=== PATIENT | male | born 1965 | race Caucasian/White ===

== ENCOUNTER → 2022-02-05 13:59 | Outpatient (BNVA) | payer SELFPAY | PROVIDERS: Visit Provider Physician Assistant Medical | DX: Z02.79 Encounter for issue of other medical certificate (principal) ==

== ENCOUNTER 2023-11-13 13:46 | Outpatient (REF) | payer OTHER, SELFPAY | END 2023-11-13 13:47 | disposition home or self-care (01) | LOC: HO.SH 13:46 | PROVIDERS: Visit Provider Internal Medicine | DX: Z01.118 Encounter for examination of ears and hearing with other abnormal findings (principal); H90.3 Sensorineural hearing loss, bilateral | CPT/HCPCS: 92557 ==

== ENCOUNTER 2023-12-16 15:49 | Outpatient (REF) | payer SELFPAY ==
--- NOTE | 2023-12-17 08:45 | MHC.AU.HA1 ---
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 Not interested in a CI at this time. He is only interested in purchasing a hearing aid for his right ear as he never liked using one in his left ear. Recommended changing to standard BTE for slightly more power. However, Reginald reported that the larger hearing aid case behind his ear would not be suitable for his line of work as equipment often grazes his head/ears. Also discussed more durability with BTE; however, Reginald opted to continue with a RITE style hearing aid. Discussed Oticon Intent differences including push button (no VC switch) and rechargeability or changing to Phonak. Reginald preferred to continue with Oticon and was agreeable to both differences. Impression taken, AD without incident. Sent to [employer]. Hearing Aid Prescription: Based on the individual?s shared listening needs, communication environments, dexterity, desire for connectivity, and personal preferences, the following prescription for amplification has been made: Right ear: Make, Model, Color: Oticon Intent 4 miniRITE-R Color: Silver Battery Size: Rechargeable Agent Contract Clerk/Slim Tube: Speaker Wire Length 3 Type of Earmold/Dome/CShell/SlimTip: Power Mold Accessories/Assistive Technology: Four Corner Stayer Machine Operator Plan of Care: Patient wishes to purchase hearing aids as prescribed Action Taken/Action Needed: Hearing Instrument Fitting to be scheduled when materials arrive Primary Diagnosis: H90.3 Bilateral Sensorineural Hearing Loss Signature: Provider: Porter Pond, [facility]
== END 2023-12-16 15:50 | disposition home or self-care (01) ==
LOC: HO.HAP 15:49
PROVIDERS: Visit Provider Internal Medicine
DX: Z46.1 Encounter for fitting and adjustment of hearing aid (principal); H90.3 Sensorineural hearing loss, bilateral
CPT/HCPCS: 92590

== ENCOUNTER 2024-01-14 14:53 | Outpatient (REF) | payer SELFPAY | END 2024-01-14 14:54 | disposition home or self-care (01) | LOC: HO.HAP 14:53 | PROVIDERS: Visit Provider Internal Medicine | DX: Z46.1 Encounter for fitting and adjustment of hearing aid (principal); H90.3 Sensorineural hearing loss, bilateral | CPT/HCPCS: 92700; V5257; V5264; V5299 ==

== ENCOUNTER 2024-02-03 15:57 | Outpatient (REF) | payer SELFPAY ==
--- NOTE | 2024-02-04 08:09 | MHC.AU.HA3 ---
Hearing Instrument Follow-Up- Binaural Date of Visit: 02/03/24 Right Ear: Make, Model, Color, Serial Number: Oticon Intent 4 miniRITE-R SN: [id number] Color: Silver Campus Administrative Assistant Repair Warranty: 01/28/2027 Campus Administrative Assistant Loss and Damage Warranty: 01/28/2027 [facility] Service Plan: OPTED OUT Battery Size: Rechargeable Storekeeper Steward/Slim Tube: Speaker Wire Length 3 Earmold/Dome/CShell/SlimTip:Power Mold SN: [id number] Type of Wax Guard: miniFit Dispensed By: [facility] Date of Fittin01/14/2024 Follow-Up Summary: Although Reginald reported that he has been hearing much better with his new hearing aid, he has a couple issues. 1. Hearing aid is intermittent. Reportedly cuts out for several seconds and he needs to move the hearing aid/wire around to make it start working again. Happens multiple times throughout the day. Could not replicate in office via listening check; however, will send to [employer] to assess. 2. Discomfort at top of pinna - Wire sticks out, cutting top of pinna instead of sitting flush against head. Wire seems too long. Sent hearing aid to [employer] to assess intermittency and to replace with shorter length 2 wire. Recommendations: Patient will be contacted when materials have arrived. Diagnosis Code(s): Primary Diagnosis: H90.3 Bilateral Sensorineural Hearing Loss Signature: Provider: Porter Pond, [facility]
== END 2024-02-03 15:58 | disposition home or self-care (01) ==
LOC: HO.HAP 15:57
DX: Z13.89 Encounter for screening for other disorder (principal)

== ENCOUNTER 2024-03-07 15:45 | Outpatient (REF) | payer SELFPAY ==
--- NOTE | 2024-03-08 08:53 | MHC.AU.HA3 ---
Hearing Instrument Follow-Up- Binaural Date of Visit: 03/07/24 Right Ear: Make, Model, Color, Serial Number: Oticon Intent 4 miniRITE-R SN: [id number] Color: Silver Barrel Bridge Assembler Repair Warranty: 01/28/2027 Barrel Bridge Assembler Loss and Damage Warranty: 01/28/2027 [facility] Service Plan: OPTED OUT Battery Size: Rechargeable Cardiology Technologist/Slim Tube: Speaker Wire Length 2 Earmold/Dome/CShell/SlimTip:Power Mold SN: [id number] Type of Wax Guard: miniFit Dispensed By: [facility] Date of Fittin01/14/2024 Follow-Up Summary: Picked up repaired hearing aid. Happier with shorter vitreo retinal surgeon wire. However, part way through appointment, Reginald noticed the hearing aid was intermittent again. Could not replicate via listening check. Turned off Sudden Sound Stabilizer and Neural Noise Suppression to determine if those systems might be the cause. Did not notice intermittency again in office. Will try with these settings. Reginald will call to update in a few weeks, if problem persists. Called O[employer]on to extend trial period to 04/28/2024. Recommendations: Hearing instrument follow-up or maintenance as needed. Please contact our clinic with any questions or concerns. Diagnosis Code(s): Primary Diagnosis: H90.3 Bilateral Sensorineural Hearing Loss Signature: Provider: Porter Pond, [facility]
== END 2024-03-07 15:46 | disposition home or self-care (01) ==
LOC: HO.HAP 15:45
DX: Z13.89 Encounter for screening for other disorder (principal)

== ENCOUNTER 2024-10-18 15:47 | Outpatient (REF) | payer SELFPAY ==
--- OUTSIDE RECORDS SUMMARY | 2024-10-18 18:35 | XMS_ITS | Encounter Summary ---
Author Organization [facility] Address [address] [place] [address] Care Team Providers Care Lead Refinery Supervisor Name Role Phone Mejia Anderson MD Primary Care Provider [phone] Encounter Details Date Type Department Care Team (Latest Contact Info) Description 09/26/2024 Lab Requisition [facility] - Main Lab [address] [place] [id number] Mejia Anderson MD [address] [place] [address] Postprocedural hypothyroidism; Encounter for general adult medical examination without abnormal findings; Essential (primary) hypertension; Mild intermittent asthma, uncomplicated; Unspecified osteoarthritis, unspecified site Social History Tobacco Use Types Packs/Day Years Used Date Smoking Tobacco: Never Smokeless Tobacco: Never Sex and Gender Information Value Date Recorded Sex Assigned at Not on file Legal Sex Male 12:23 PM EST Gender Identity Not on file Sexual Orientation Not on file documented as of this encounter Functional Status * Are you deaf or do you have serious difficulty hearing? Answer Date of Assessment Author No 07/06/2024 6:37 PM EST Harmeet Kwon RN * Are you blind or do you have serious difficulty seeing, even when wearing glasses? Answer Date of Assessment Author No 07/06/2024 6:37 PM Harmeet Ruiz RN * Do you have serious difficulty walking or climbing stairs? Answer Date of Assessment Author No 07/06/2024 6:37 PM Harmeet Ruiz RN * Do you have serious difficulty dressing or bathing? Answer Date of Assessment Author No 07/06/2024 6:37 PM Harmeet Ruiz RN * Because of a physical, mental, or emotional condition, do you have serious difficulty doing errandsalone such as visiting the doctor? Answer Date of Assessment Author No 07/06/2024 6:37 PM Harmeet Ruiz RN documented as of this encounter Mental Status * Because of a physical, mental, or emotional condition, do you have serious difficulty concentrating, remembering, or making decisions? (5 years old or older) Answer Entry Date Author No 07/06/2024 6:37 PM Harmeet Ruiz RN documented in this encounter Plan of Treatment Not on file documented as of this encounter Procedures Procedure Name Priority Date/Time Associated Diagnosis Comments LIPID PANEL WITH REFLEX TO DIRECT LDL Routine 09/26/2024 3:37 PM EDT Encounter for general adult medical examination without abnormal findings CBC WITH AUTO DIFFERENTIAL Routine 09/26/2024 3:37 PM EDT Mild intermittent asthma, uncomplicated SEDIMENTATION RATE Routine 09/26/2024 3: 37 PM EDT Unspecified osteoarthritis, unspecified site CBC AND DIFFERENTIAL Routine 09/26/2024 3:37 PM EDT Mild intermittent asthma, uncomplicated URIC ACID Routine 09/26/2024 3:37 PM EDT Encounter for general adult medical examination without abnormal findings THYROID STIMULATING HORMONE Routine 09/26/2024 3:37 PM EDT Postprocedural hypothyroidism COMPREHENSIVE METABOLIC PANEL Routine 09/26/2024 3:37 PM EDT Essential (primary) hypertension documented in this encounter Results * (ABNORMAL) CBC auto differential (09/26/2024 3:37 PM EDT) [facility] [address] WBC 5.6 4.8 - 10.8 K/[facility] LAB HEMETOLOGY METHOD 09/26/2024 4:17 PM EDT [facility] RBC 4.40(L) 4.50 - 5.50 M/mcL LAB HEMETOLOGY METHOD 09/26/2024 4:17 PM EDT [facility] Hemoglobin 14.1 13.5 - 17.5 g/dL LAB HEMETOLOGY METHOD 09/26/2024 4:17 PM [facility] Hematocrit 39.4(L) 42.0 - 54.0 % LAB [facility] MCV 90.2 79.0 - 98.0 FL LAB HEMETOLOGY METHOD 09/26/2024 4:17 PM [facility] MCH 32.3(H) 27.0 - 32.0 pcg LAB HEMETOLOGY METHOD 09/26/2024 4:17 PM [facility] MCHC 35.8 32.0 - 37.0 g/dL LAB HEMETOLOGY METHOD 09/26/2024 4:17 PM [facility] RDW 12.1 11.0 - 15.0 % LAB HEMETOLOGY METHOD 09/26/2024 4:17 PM [facility] Platelets 280 130 - 400 K/mcL LAB HEMETOLOGY METHOD 09/26/2024 4:17 PM [facility] MPV 10.5 7.0 - 11.0 FL LAB HEMETOLOGY METHOD 09/26/2024 4:17 PM [facility] NRBC 0.0 <1.0 % LAB HEMETOLOGY METHOD 09/26/2024 4:17 PM [facility] NRBC Absolute 0.00 <0.10 K/mcL LAB HEMETOLOGY METHOD [facility]/26[facility]2024 [facility] Neutrophils Relative 48.1 % LAB HEMETOLOGY METHOD 09/26/2024 4:17 PM [facility] Lymphocytes Relative 31.7 % LAB HEMETOLOGY METHOD 09/26/2024 4:17 PM EDT [facility] Monocytes Relative 16.2 % LAB HEMETOLOGY METHOD 09/26/2024 4:17 PM T [facility] Eosinophils Relative 2.0 % LAB HEMETOLOGY METHOD [facility]/26[facility]2024 [facility] Basophils Relative 1.3 % LAB HEMETOLOGY METHOD 09/26/2024 4:17 PM EDT [facility] Immature Granulocytes Relative 0.7 % LAB HEMETOLOGY METHOD 09/26/2024 4:17 PM EDT [facility] Neutrophils Absolute 2.68 1.50 - 7.00 K/mcL LAB HEMETOLOGY METHOD 09/26/2024 4:17 PM [facility] Lymphocytes Absolute 1.76 1.00 - 5.00 K/mcL LAB HEMETOLOGY METHOD 09/26[facility]2024 [facility] Monocytes Absolute 0.90 0.20 - 1.00 K/mcL LAB HEMETOLOGY METHOD 09/26/2024 4:[facility] Eosinophils Absolute 0.11 0.00 - 0.50 K/mcL LAB HEMETOLOGY METHOD 09/26/2024 4:17 PM [facility] Basophils Absolute 0.07 0.00 - 0.20 K/mcL LAB HEMETOLOGY METHOD 09/26[facility]2024 [facility] Immature Granulocytes Absolute 0.04(H) 0.00 - 0.03 K/mcL LAB HEMETOLOGY METHOD 09/26/2024 4:17 PM [facility] Blood Venous blood specimen / Unknown Venipuncture / Unknown 09/26/2024 3:37 PM EDT 09/26/2024 4:02 PM EDT Mejia Anderson MD LAB BLOOD ORDERABLES Final Res ult [facility] [address] [place] [address], [place] [phone] * Lipid panel with reflex to direct LDL (09/26/2024 3:37 PM EDT) Cholesterol 159 0 - 200 mg/dL LAB CHEMISTRY METHOD 09/26/2024 4:41 PM EDT [facility] Triglycerides 73 0 - 150 mg/dL LAB CHEMISTRY METHOD 09/26/2024 4:41 PM EDT [facility] HDL 63 >=40 mg/dL LAB CHEMISTRY METHOD 09/26/2024 4:41 PM EDT [facility] LDL Calculated 81 0 - 100 mg/dL LAB CHEMISTRY METHOD 09/26/2024 4:41 PM EDT [facility] VLDL Cholesterol Dilip 14.6 mg/dL LAB CHEMISTRY METHOD 09/26/2024 4:41 PM EDT [facility] Non HDL Chol. (LDL+VLDL) 96 <145 mg/dL LAB CHEMISTRY METHOD 09/26/2024 4:41 PM EDT [facility] Chol/HDL Ratio 2.5 0.0 - 4.4 LAB CHEMISTRY METHOD 09/26/2024 4:41 PM EDT [facility] Blood Venous blood specimen / Unknown Venipuncture / Unknown 09/26/2024 3:37 PM EDT 09/26/2024 4:01 PM EDT Mejia Anderson MD LAB BLOOD ORDERABLES Final Res ult [facility] [address] [place] [address], [place] [phone] * Sedimentation rate (09/26/2024 3:37 PM EDT) Sed Rate 3 0 - 20 mm/hr LAB HEMETOLOGY METHOD 09/26/2024 4:30 PM EDT [facility] Blood Venous blood specimen / Unknown Venipuncture / Unknown 09/26/2024 3:37 PM EDT 09/26/2024 4:02 PM EDT us Mejia Anderson MD LAB BLOOD ORDERABLES Final Res ult [facility] [address] [place] [address], [place] [phone] * (ABNORMAL) Comprehensive metabolic panel (09/26/2024 3:37 PM EDT) Sodium 126(L) 133 - 145 mmol/L LAB CHEMISTRY METHOD 09/26/2024 4:41 PM [facility] Potassium 4.4 3.5 - 5.5 mmol/L LAB CHEMISTRY METHOD 09/26/2024 4:41 PM [facility] Chloride 92(L) 96 - 110 mmol/L LAB CHEMISTRY METHOD 09/26/2024 4:41 PM [facility] CO2 27 21 - 32 mmol/L LAB CHEMISTRY METHOD 09/26/2024 4:41 PM [facility] Anion Gap 7 3 - 11 LAB CHEMISTRY METHOD 09/26/2024 4:41 PM [facility] Glucose 87 70 - 100 mg/dL LAB CHEMISTRY METHOD 09/26/2024 4:41 PM [facility] BUN 7 5 - 25 mg/dL LAB CHEMISTRY METHOD 09/26/2024 4:41 PM [facility] Creatinine 0.81 0.70 - 1.30 mg/dL LAB CHEMISTRY METHOD 09/26/2024 4:41 PM [facility] eGFR 101 >=60 mL/min/1. 73m2 LAB CHEMISTRY METHOD 09/26/2024 4:41 PM EDT [facility] Comment:Calculation based on the??Chronic Kidney Disease Epidemiology Collaboration (CKD-EPI) equation refit??without adjustment for race. BUN/Creatinine Ratio 8.6 LAB CHEMISTRY METHOD 09/26/2024 4:41 PM T [facility] Calcium 9.5 8.5 - 10.5 mg/dL LAB CHEMISTRY METHOD 09/26/2024 4:41 PM [facility] AST (SGOT) 32 10 - 42 unit/L LAB CHEMISTRY METHOD 09/26/2024 4:41 PM [facility] ALT (SGPT) 47 10 - 60 unit/L LAB CHEMISTRY METHOD 09/26/2024 4:41 PM [facility] Alkaline Phosphatase 82 42 - 121 unit/L LAB CHEMISTRY METHOD 09/26/2024 4:41 PM [facility] Total Protein 7.2 6.0 - 8.0 g/dL LAB CHEMISTRY METHOD 09/26/2024 4:41 PM [facility] Albumin 4.1 3.2 - 5.0 g/dL LAB CHEMISTRY METHOD 09/26/2024 4:41 PM [facility] Total Bilirubin 1.3 0.0 - 1.4 mg/dL LAB CHEMISTRY METHOD 09/26/2024 4:41 PM [facility] Blood Venous blood specimen / Unknown Venipuncture / Unknown 09/26/2024 3:37 PM EDT 09/26/2024 4:01 PM EDT us Mejia Anderson MD LAB BLOOD ORDERABLES Final Res ult [facility] [address] [place] [address], * (ABNORMAL) Uric acid (09/26/2024 3:37 PM EDT) Uric Acid 3.5(L) 3.7 - 9.2 mg/dL LAB CHEMISTRY METHOD 09/26/2024 4:41 PM EDT [facility] Blood Venous blood specimen / Unknown Venipuncture / Unknown 09/26/2024 3:37 PM EDT 09/26/2024 4:01 PM EDT us Mejia Anderson MD LAB BLOOD ORDERABLES Final Res ult Performing Organization Address City/[facility]/ZIP Co de Phone Number [facility] [address] [place] [address], [place] [phone] * Thyroid stimulating hormone (09/26/2024 3:37 PM EDT) TSH 2.25 0.40 - 4.00 mcIU/mL LAB CHEMISTRY METHOD 09/26/2024 4:51 PM EDT [facility] Blood Venous blood specimen / Unknown Venipuncture / Unknown 09/26/2024 3:37 PM EDT 09/26/2024 4:01 PM EDT us Mejia Anderson MD LAB BLOOD ORDERABLES Final Res ult Performing Organization Address [facility] de Phone Number [facility] [address] [place] [address], [place] [phone] documented in this encounter Visit Diagnoses Diagnosis Postprocedural hypothyroidism Postsurgical hypothyroidism Encounter for general adult medical examination without abnormal findings Essential (primary) hypertension Unspecified essential hypertension Mild intermittent asthma, uncomplicated Unspecified osteoarthritis, unspecified site documented in this encounter Care Teams Lead Refinery Supervisor Relationship Specialty Start Date End Date Mejia Anderson MD [address] [place] [address] PCP - General Internal Medicine 05/31/24 documented as of this encounter
--- OUTSIDE RECORDS SUMMARY | 2024-10-18 18:35 | XMS_ITS | Clinical Summary ---
Author Organization [address] Address [address] [place] [address] Phone Care Team Providers Care Farm Equipment Mechanic Apprentice Name Role Phone Mejia Anderson MD Primary Care Provider [phone] Allergies No known active allergies Medications gabapentin (NEURONTIN) 300 mg capsule Take 1 capsule (300 mg total) by mouth 3 (three) times a day for 5 days. 15 capsule 07/06/2024 Active Active Problems No known active problems Encounters Date Type Department Care Team Description 09/27/[address] [facility] Lab [address] [place] [address] Mejia Anderson MD Hypokalemia; Hypo-osmolality and hyponatremia 09/26/[address] [facility] Lab [address] [place] [phone] Mejia Anderson MD Postprocedural hypothyroidism; Encounter for general adult medical examination without abnormal findings; Essential (primary) hypertension; Mild intermittent asthma, uncomplicated; Unspecified osteoarthritis, unspecified site from Last 3 Months Medical History Medical History Date Comments High blood pressure Social History Tobacco Use Types Packs/Day Years Used Date Smoking Tobacco: Never Smokeless Tobacco: Never Tobacco Cessation:Counseling Given: Not Answered Sex and Gender Information Value Date Recorded Sex Assigned at Not on file Legal Sex Male 12:23 PM EST Gender Identity Not on file Sexual Orientation Not on file Obstetrics History Last Filed Vital Signs Vital Sign Reading Time Taken Comments Blood Pressure 133/83 07/06/2024 4:27 PM EST Pulse 77 07/06/2024 4:27 PM EST Temperature 36.7 ??C (98.1 ??F) 07/06/2024 4:27 PM ES T Respiratory Rate 16 07/06/2024 4:27 PM EST Oxygen Saturation 99% 07/06/2024 4:27 PM EST Inhaled Oxygen Concentration - - Weight 83.5 kg (184 lb) 07/06/2024 4:27 PM EST Height 167.6 cm (5' 6 ) 07/06/2024 4:27 PM EST Body Mass Index 29.7 07/06/2024 4:27 PM EST Plan of Treatment Health Maintenance Due Date Last Done Comments DTaP,Tdap,and Td Vaccines (1 - Tdap) 1983 Pneumococcal Vaccine: 50+ Years (1 of 2 - PCV) 1983 Pneumococcal Vaccine: Pediatrics (0 to 5 Years) and At-Risk Patients (6 to 64 Years) (1 of 2 - PCV) 1983 Zoster Vaccines (1 of 2) 2014 Colorectal Cancer Screening: Colonoscopy 06/17/2022 Depression Screening 06/17/2022 HIV Screening 06/17/2022 Hepatitis C Screening 06/17/2022 Social Influencers of Health Screening 06/17/2022 RSV Immunization Patients 60+ Years Old (1 - Risk 60-74 years 1-dose series) 2024 Hypertension/CHF/CAD Annual BMP Blood Test 09/26/2025 09/26/2024, 05/31/2024 Cholesterol Screening (Lipid Panel) 09/26/2029 09/26/2024, 05/31/2024 COVID-19 Vaccine Completed 05/12/2024, 03/2023, 08/02/2021, Additional history exists Influenza Vaccine Completed 05/12/2024, , 05/12/2022 HIB Vaccines Aged Out No longer eligi ble based on patient's age to complete this topic HPV Vaccines Aged Out No longer eligi ble based on patient's age to complete this topic Hepatitis A Vaccines Aged Out No long er eligible based on patient's age to complete this topic Hepatitis B Vaccines Aged Out No long er eligible based on patient's age to complete this topic IPV Vaccines Aged Out No longer eligi ble based on patient's age to complete this topic MMR Vaccines Aged Out No longer eligi ble based on patient's age to complete this topic Meningococcal ACWY Vaccine Aged Out N o longer eligible based on patient's age to complete this topic Meningococcal B Vacine Aged Out No lo nger eligible based on patient's age to complete this topic RSV Immunization Patients Under 20 months Aged Out No longer eligible based on patient's age to complete this topic Varicella Vaccines Aged Out No longer eligible based on patient's age to complete this topic Procedures Procedure Name Priority Date/Time Associated Diagnosis Comments ELECTROLYTE PANEL Routine 10/04/2024 4:0 0 PM EDT Hypokalemia Hypo-osmolality and hyponatremia CBC WITH AUTO DIFFERENTIAL Routine 09/26/2024 3:37 PM EDT Mild intermittent asthma, uncomplicated LIPID PANEL WITH REFLEX TO DIRECT LDL Routine 09/26/2024 3:37 PM EDT Encounter for general adult medical examination without abnormal findings SEDIMENTATION RATE Routine 09/26/2024 3: 37 PM EDT Unspecified osteoarthritis, unspecified site CBC AND DIFFERENTIAL Routine 09/26/2024 3:37 PM EDT Mild intermittent asthma, uncomplicated COMPREHENSIVE METABOLIC PANEL Routine 09/26/2024 3:37 PM EDT Essential (primary) hypertension URIC ACID Routine 09/26/2024 3:37 PM EDT Encounter for general adult medical examination without abnormal findings THYROID STIMULATING HORMONE Routine 09/26/2024 3:37 PM EDT Postprocedural hypothyroidism from Last 3 Months Results * (ABNORMAL) Electrolyte panel (10/04/2024 4:00 PM EDT) Sodium 130(L) 133 - 145 mmol/L LAB CHEMISTRY METHOD 10/04/2024 5:07 PM EDT [facility] Potassium 4.1 3.5 - 5.5 mmol/L LAB CHEMISTRY METHOD 10/04/2024 5:07 PM EDT [facility] Chloride 96 96 - 110 mmol/L LAB CHEMISTRY METHOD 10/04/2024 5:07 PM EDT [facility] CO2 27 21 - 32 mmol/L LAB CHEMISTRY METHOD 10/04/2024 5:07 PM T [facility] Anion Gap 7 3 - 11 LAB CHEMISTRY METHOD 10/04/2024 5:07 PM T [facility] Blood Venous blood specimen / Unknown Venipuncture / Unknown 10/04/2024 4:00 PM EDT 10/04/2024 4:06 PM EDT Mejia Anderson MD LAB BLOOD ORDERABLES Final Res ult [facility] [address] [place] [address], * Lipid panel with reflex to direct LDL (09/26/2024 3:37 PM EDT) Cholesterol 159 0 - 200 mg/dL LAB CHEMISTRY METHOD 09/26/2024 4:41 PM [facility] Triglycerides 73 0 - 150 mg/dL LAB CHEMISTRY METHOD 09/26/2024 4:41 PM [facility] HDL 63 >=40 mg/dL LAB CHEMISTRY METHOD 09/26/2024 4:41 PM [facility] LDL Calculated 81 0 - 100 mg/dL LAB CHEMISTRY METHOD 09/26/2024 4:41 PM [facility] VLDL Cholesterol Dilip 14.6 mg/dL LAB CHEMISTRY METHOD 09/26/2024 4:41 PM [facility] Non HDL Chol. (LDL+VLDL) 96 <145 mg/dL LAB CHEMISTRY METHOD 09/26/2024 4:41 PM [facility] Chol/HDL Ratio 2.5 0.0 - 4.4 LAB CHEMISTRY METHOD 09/26/2024 4:41 PM EDT [facility] Blood Venous blood specimen / Unknown Venipuncture / Unknown 09/26/2024 3:37 PM EDT 09/26/2024 4:01 PM EDT us Mejia Anderson MD LAB BLOOD ORDERABLES Final Res ult [facility] [address] [place] [address], * (ABNORMAL) CBC auto differential (09/26/2024 3:37 PM EDT) WBC 5.6 4.8 - 10.8 K/mcL LAB HEMETOLOGY METHOD 09/26/2024 4:17 PM EDT [facility] RBC 4.40(L) 4.50 - 5.50 M/mcL LAB HEMETOLOGY METHOD 09/26/2024 4:17 PM EDT [facility] Hemoglobin 14.1 13.5 - 17.5 g/dL LAB HEMETOLOGY METHOD 09/26/2024 4:17 PM EDT [facility] Hematocrit 39.4(L) 42.0 - 54.0 % LAB HEMETOLOGY METHOD 09/26/2024 4:17 PM EDT [facility] MCV 90.2 79.0 - 98.0 FL LAB HEMETOLOGY METHOD 09/26/2024 4:17 PM EDT [facility] MCH 32.3(H) 27.0 - 32.0 pcg LAB HEMETOLOGY METHOD 09/26/2024 4:17 PM EDT [facility] MCHC 35.8 32.0 - 37.0 g/dL LAB HEMETOLOGY METHOD 09/26/2024 4:17 PM EDT [facility] RDW 12.1 11.0 - 15.0 % LAB HEMETOLOGY METHOD 09/26/2024 4:17 PM EDT [facility] Platelets 280 130 - 400 K/mcL LAB [facility]EMETOLOGY [facility] MPV 10.5 7.0 - 11.0 FL LAB HEMETOLOGY METHOD [facility] NRBC 0.0 <1.0 % LAB HEMETOLOGY METHOD 09/26/2024 4:17 PM EDT [facility] NRBC Absolute 0.00 <0.10 K/mcL LAB HEMETOLOGY METHOD 09/26/2024 4:17 PM [facility] Neutrophils Relative 48.1 % LAB HEMETOLOGY METHOD 09/26/2024 4:17 PM [facility] Lymphocytes Relative 31.7 % LAB HEMETOLOGY METHOD 09/26/2024 4:17 PM [facility] Monocytes Relative 16.2 % LAB HEMETOLOGY METHOD 09/26/2024 4:17 PM [facility] Eosinophils Relative 2.0 % LAB HEMETOLOGY METHOD 09/26/2024 4:17 PM [facility] Basophils Relative 1.3 % LAB HEMETOLOGY METHOD 09/26/2024 4:17 PM [facility] Immature Granulocytes Relative 0.7 % LAB HEMETOLOGY METHOD 09/26/2024 4:17 PM [facility] Neutrophils Absolute 2.68 1.50 - 7.00 K/mcL LAB HEMETOLOGY METHOD 09/26[facility]24 [facility] Lymphocytes Absolute 1.76 1.00 - 5.00 K/mcL LAB HEMETOLOGY METHOD 09/26/2024 [facility] Monocytes Absolute 0.90 0.20 - 1.00 K/mcL LAB HEMETOLOGY METHOD 09/26/2024 4:17 PM EDT [facility] Eosinophils Absolute 0.11 0.00 - 0.50 K/[facility] LAB HEMETOLOGY METHOD 09/26/2024 4:17 PM EDT [facility] Basophils Absolute 0.07 0.00 - 0.20 K/[facility] LAB HEMETOLOGY METHOD 09/26/2024 4:17 PM EDT [facility] Immature Granulocytes Absolute 0.04(H) 0.00 - 0.03 K/[facility] LAB HEMETOLOGY METHOD 09/26/2024 4:17 PM EDT [facility] Blood Venous blood specimen / Unknown Venipuncture / Unknown 09/26/2024 3:37 PM EDT 09/26/2024 4:02 PM EDT Mejia Anderson MD LAB BLOOD ORDERABLES Final Res ult Performing Organization Address City/[facility]/ZIP Co de Phone Number [facility] [address] [place] [address], [place] [phone] * Sedimentation rate (09/26/2024 3:37 PM EDT) Pathologist [facility] Sed Rate 3 0 - 20 mm/hr LAB HEMETOLOGY METHOD 09/26/2024 4:30 PM EDT [facility] Blood Venous blood specimen / Unknown Venipuncture / Unknown 09/26/2024 3:37 PM EDT 09/26/2024 4:02 PM EDT Mejia Anderson MD LAB BLOOD ORDERABLES Final Res ult [facility] [address] [place] [address], [place] [phone] * (ABNORMAL) Uric acid (09/26/2024 3:37 PM EDT) Uric Acid 3.5(L) 3.7 - 9.2 mg/dL LAB CHEMISTRY METHOD 09/26/2024 4:41 PM EDT [facility] Blood Venous blood specimen / Unknown Venipuncture / Unknown 09/26/2024 3:37 PM EDT 09/26/2024 4:01 PM EDT Mejia Anderson MD LAB BLOOD ORDERABLES Final Res ult Performing Organization Address City/[facility]/ZIP Co de Phone Number [facility] [address] [place] [address], [place] [phone] * Thyroid stimulating hormone (09/26/2024 3:37 PM EDT) [facility] TSH 2.25 0.40 - 4.00 mcIU/mL LAB CHEMISTRY METHOD 09/26/2024 4:51 PM EDT [facility] Blood Venous blood specimen / Unknown Venipuncture / Unknown 09/26/2024 3:37 PM EDT 09/26/2024 4:01 PM EDT Mejia Anderson MD LAB BLOOD ORDERABLES Final Res ult Performing Organization Address [facility] Co de Phone Number [facility] [address] [place] [address], [place] [phone] * (ABNORMAL) Comprehensive metabolic panel (09/26/2024 3:37 PM EDT) Pathologist [facility] Sodium 126(L) 133 - 145 mmol/L LAB CHEMISTRY METHOD 09/26/2024 4:41 PM EDT [facility] Potassium 4.4 3.5 - 5.5 mmol/L LAB CHEMISTRY METHOD 09/26/2024 4:41 PM EDT [facility] Chloride 92(L) 96 - 110 mmol/L LAB CHEMISTRY METHOD 09/26/2024 4:41 PM EDT [facility] CO2 27 21 - 32 mmol/L LAB CHEMISTRY METHOD 09/26/2024 4:41 PM [facility] Anion Gap 7 3 - 11 LAB CHEMISTRY METHOD 09/26/2024 4:41 PM [facility] Glucose 87 70 - 100 mg/dL LAB CHEMISTRY METHOD 09/26/2024 4:41 PM [facility] BUN 7 5 - 25 mg/dL LAB CHEMISTRY METHOD 09/26/2024 4:41 PM [facility] Creatinine 0.81 0.70 - 1.30 mg/dL LAB CHEMISTRY METHOD 09/26/2024 4:41 PM [facility] eGFR 101 >=60 mL/min/1. 73m2 LAB CHEMISTRY METHOD 09/26/2024 4:41 PM [facility] Comment:Calculation based on the??Chronic Kidney Disease Epidemiology Collaboration (CKD-EPI) equation refit??without adjustment for race. BUN/Creatinine Ratio 8.6 LAB CHEMISTRY METHOD 09/26/2024 4:41 PM [facility] Calcium 9.5 8.5 - 10.5 mg/dL LAB CHEMISTRY METHOD 09/26/2024 4:41 PM [facility] AST (SGOT) 32 10 - 42 unit/L LAB CHEMISTRY METHOD 09/26/2024 4:41 PM [facility] ALT (SGPT) 47 10 - 60 unit/L LAB CHEMISTRY METHOD 09/26/2024 4:41 PM [facility] Alkaline Phosphatase 82 42 - 121 unit/L LAB CHEMISTRY METHOD 09/26/2024 4:41 PM [facility] Total Protein 7.2 6.0 - 8.0 g/dL LAB CHEMISTRY METHOD 09/26/2024 4:41 PM [facility] Albumin 4.1 3.2 - 5.0 g/dL LAB CHEMISTRY METHOD 09/26/2024 4:41 PM EDT [facility] Total Bilirubin 1.3 0.0 - 1.4 mg/dL LAB CHEMISTRY METHOD 09/26/2024 4:41 PM EDT [facility] Blood Venous blood specimen / Unknown Venipuncture / Unknown 09/26/2024 3:37 PM EDT 09/26/2024 4:01 PM EDT Mejia Anderson MD LAB BLOOD ORDERABLES Final Res ult [facility] [address] [place] [address], from Last 3 Months Insurance [facility] Care Teams Farm Equipment Mechanic Apprentice Relationship Specialty Start Date End Date Mejia Anderson MD [address] [place] [address] PCP - General Internal Medicine 05/31/24
--- OUTSIDE RECORDS SUMMARY | 2024-10-18 18:35 | XMS_ITS | Encounter Summary ---
Author Organization [facility] Address [address] [place] [address] Care Team Providers Care Tile Machine Operator Name Role Phone Mejia Anderson MD Primary Care Provider [phone] Encounter Details Date Type Department Care Team (Late st Contact Info) Description 09/27/2024 Lab Requisition [facility] Lab [address] [place] [phone] Mejia Anderson MD [address] [place] [address] Hypokalemia; Hypo-osmolality and hyponatremia Social History Tobacco Use Types Packs/Day Years [...] 07/06/2024 6:37 PM Harmeet Ruiz RN * Are you blind or do [...] Associated Diagnosis Comments ELECTROLYTE PANEL Routine 10/04/2024 4: 00 PM EDT Hypokalemia Hypo-osmolality and hyponatremia documented in this encounter Results * (ABNORMAL) Electrolyte panel (10/04/2024 4:00 PM EDT) Sodium 130(L) 133 - 145 mmol/L LAB CHEMISTRY METHOD 10/04/2024 5:07 PM EDT [facility] Potassium 4.1 3.5 - 5.5 mmol/L LAB CHEMISTRY METHOD 10/04/2024 5:07 PM EDT [facility] Chloride 96 96 - 110 mmol/L LAB CHEMISTRY METHOD 10/04/2024 5:07 PM EDT [facility] CO2 27 21 - 32 mmol/L LAB CHEMISTRY METHOD 10/04/2024 5:07 PM EDT [facility] Anion Gap 7 3 - 11 LAB CHEMISTRY METHOD 10/04/2024 5:07 PM EDT [facility] Blood Venous blood specimen / Unknown Venipuncture / Unknown 10/04/2024 4:00 PM EDT 10/04/2024 4:06 PM EDT us Mejia Anderson MD LAB BLOOD ORDERABLES Final Res ult [facility] [address] [place] [address], documented in this encounter Visit Diagnoses Diagnosis Hypokalemia Hypopotassemia Hypo-osmolality and hyponatremia documented in this encounter Care Teams Tile Machine Operator Relationship Specialty Start Date End Date Mejia Anderson MD [address] [place] [address] PCP - General Internal Medicine 05/31/24 documented as of this encounter
== END 2024-10-18 15:48 | disposition home or self-care (01) ==
LOC: HO.HAP 15:47
PROVIDERS: Visit Provider Internal Medicine
DX: Z46.1 Encounter for fitting and adjustment of hearing aid (principal); H90.3 Sensorineural hearing loss, bilateral
CPT/HCPCS: V5267

== ENCOUNTER 2024-10-25 15:45 | Outpatient (REF) | payer SELFPAY ==
--- OUTSIDE RECORDS SUMMARY | 2024-10-25 18:41 | XMS_ITS | Clinical Summary ---
Author Organization [address] Address [address] [place] [address] Phone Care Team Providers Care Process Control Specialist Name Role Phone Mejia Anderson MD Primary Care Provider [phone] Allergies No known active allergies Medications gabapentin (NEURONTIN) 300 mg capsule Take 1 capsule (300 mg total) by mouth 3 (three) times a day for 5 days. 15 capsule 07/06/2024 Active Active Problems No known active problems Encounters Date Type Department Care Team Description 09/27/[address] [facility] [address] [place] [address] Mejia Anderson MD Hypokalemia; Hypo-osmolality and hyponatremia 09/26/[address] [facility] [address] [place] [phone] Mejia Anderson MD Postprocedural hypothyroidism; Encounter for [...] Influencers of Health Screening 06/17/2022 RSV Immunization Adult Patients (1 - Risk 60-74 years 1-dose series) [...] age to complete this topic Meningococcal B Vaccine Aged Out No l onger eligible based on patient's age to complete [...] LAB CHEMISTRY METHOD 10/04/2024 5:07 PM EDT [facility] Potassium 4.1 3.5 - 5.5 mmol/L LAB CHEMISTRY METHOD 10/04/2024 5:07 PM EDT [facility] Chloride 96 96 - 110 mmol/L LAB CHEMISTRY METHOD 10/04/2024 5:07 PM EDT [facility] CO2 27 21 - 32 mmol/L LAB CHEMISTRY METHOD 10/04/2024 5:07 PM EDT [facility] Anion Gap 7 3 - 11 LAB CHEMISTRY METHOD 10/04/2024 5:07 PM T [facility] Blood Venous blood specimen / Unknown Venipuncture / Unknown 10/04/2024 4:00 PM EDT 10/04/2024 4:06 PM EDT us Mejia Anderson MD LAB BLOOD ORDERABLES Final Res ult [facility] [address] [place] [address], * Lipid panel with reflex to direct LDL (09/26/2024 3:37 PM EDT) Cholesterol 159 0 - 200 mg/dL LAB CHEMISTRY METHOD 09/26/2024 4:41 PM [facility] Triglycerides 73 0 - 150 mg/dL LAB CHEMISTRY METHOD 09/26/2024 4:41 PM T [facility] HDL 63 >=40 mg/dL LAB CHEMISTRY METHOD 09/26/2024 4:41 PM [facility] LDL Calculated 81 0 - 100 mg/dL LAB CHEMISTRY METHOD 09/26/2024 4:41 PM EDT [facility] VLDL Cholesterol Dilip 14.6 mg/dL LAB CHEMISTRY METHOD 09/26/2024 4:41 PM EDT [facility] Non HDL Chol. (LDL+VLDL) 96 <145 mg/dL LAB CHEMISTRY METHOD 09/26/2024 4:41 PM [facility] Chol/HDL Ratio 2.5 0.0 - 4.4 LAB CHEMISTRY METHOD 09/26/2024 4:41 PM EDT [facility] Blood Venous blood specimen / Unknown Venipuncture / Unknown 09/26/2024 3:37 PM EDT 09/26/2024 4:01 PM EDT us Mejia Anderson MD LAB BLOOD ORDERABLES Final Res ult [facility] [address] [place] [address], * (ABNORMAL) CBC auto differential (09/26/2024 3:37 PM EDT) WBC 5.6 4.8 - 10.8 K/mcL LAB HEMETOLOGY METHOD 09/26/2024 4:17 PM EDT [facility] RBC 4.40(L) 4.50 - 5.50 M/mcL LAB HEMETOLOGY METHOD 09/26/2024 4:17 PM EDT [facility] Hemoglobin 14.1 13.5 - 17.5 g/dL LAB HEMETOLOGY METHOD 09/26/2024 4:17 PM EDT [facility] Hematocrit 39.4(L) 42.0 - 54.0 % LAB HEMETOLOGY METHOD 09/26/2024 4:17 PM EDT [facility] MCV 90.2 79.0 - 98.0 FL LAB HEMETOLOGY METHOD 09/26/2024 4:17 PM EDT [facility] MCH 32.3(H) 27.0 - 32.0 pcg LAB HEMETOLOGY METHOD 09/26/2024 4:17 PM EDT [facility] MCHC 35.8 32.0 - 37.0 g/dL LAB HEMETOLOGY METHOD 09/26/2024 4:17 PM EDT [facility] RDW 12.1 11.0 - 15.0 % [facility] 280 130 - 400 K/mcL LAB HEMETOLOGY METHOD 09/26/2024 4:17 PM [facility] MPV 10.5 7.0 - 11.0 FL LAB HEMETOLOGY METHOD 09/26/2024 4:17 PM [facility] NRBC 0.0 <1.0 % LAB HEMETOLOGY METHOD 09/26/2024 4:17 PM [facility] NRBC Absolute 0.00 <0.10 K/mcL LAB HEMETOLOGY METHOD 09/26/2024 4:17 PM [facility] Neutrophils Relative 48.1 % LAB HEMETOLOGY METHOD 09/26/2024 4:17 PM [facility] Lymphocytes Relative 31.7 % LAB HEMETOLOGY METHOD 09/26/2024 4:17 PM [facility] Monocytes Relative 16.2 % LAB HEMETOLOGY METHOD 09/26/2024 4:17 PM [facility] Eosinophils Relative 2.0 % LAB HEMETOLOGY METHOD 09/26/2024 4:17 PM [facility] Basophils Relative 1.3 % LAB HEMETOLOGY METHOD 09/26/2024 4:17 PM [facility] Immature Granulocytes Relative 0.7 % LAB HEMETOLOGY METHOD 09/26/2024 4:17 PM [facility] Neutrophils Absolute 2.68 1.50 - 7.00 K/mcL LAB HEMETOLOGY METHOD [facility] Lymphocytes Absolute 1.76 1.00 - 5.00 K/mcL LAB HEMETOLOGY METHOD 09/26/2024 4:17 PM [facility] Monocytes Absolute 0.90 0.20 - 1.00 K/mcL LAB HEMETOLOGY METHOD 09/26/2024 4:17 PM EDT [facility] Eosinophils Absolute 0.11 0.00 - 0.50 K/[facility] LAB HEMETOLOGY METHOD 09/26/2024 4:17 PM EDT [facility] Basophils Absolute 0.07 0.00 - 0.20 K/[facility] LAB HEMETOLOGY METHOD 09/26/2024 4:17 PM EDT [facility] Immature Granulocytes Absolute 0.04(H) 0.00 - 0.03 K/[facility] LAB HEMETOLOGY METHOD 09/26/2024 4:17 PM EDT [facility] Blood Venous blood specimen / Unknown Venipuncture / Unknown 09/26/2024 3:37 PM EDT 09/26/2024 4:02 PM EDT us Mejia Anderson MD LAB BLOOD ORDERABLES Final Res ult Performing Organization Address City/[facility]/ZIP Co de Phone Number [facility] [address] [place] [address], [place] [phone] * Sedimentation rate (09/26/2024 3:37 PM EDT) Sed Rate 3 0 - 20 mm/hr LAB HEMETOLOGY METHOD 09/26/2024 4:30 PM EDT [facility] Blood Venous blood specimen / Unknown Venipuncture / Unknown 09/26/2024 3:37 PM EDT 09/26/2024 4:02 PM EDT Mejia Anderson MD LAB BLOOD ORDERABLES Final Res ult [facility] [address] [place] [address], [place] [phone] * (ABNORMAL) Uric acid (09/26/2024 3:37 PM EDT) Uric Acid 3.5(L) 3.7 - 9.2 mg/dL LAB CHEMISTRY METHOD 09/26/2024 4:41 PM EDT [facility] Blood Venous blood specimen / Unknown Venipuncture / Unknown 09/26/2024 3:37 PM EDT 09/26/2024 4:01 PM EDT Mejia Anderson MD LAB BLOOD ORDERABLES Final Res ult Performing Organization Address [facility]/ZIP Co de Phone Number [facility] [address] [place] [address], [place] [phone] * Thyroid stimulating hormone (09/26/2024 3:37 PM EDT) [facility] TSH 2.25 0.40 - 4.00 mcIU/mL LAB CHEMISTRY METHOD 09/26/2024 4:51 PM EDT [facility] Blood Venous blood specimen / Unknown Venipuncture / Unknown 09/26/2024 3:37 PM EDT 09/26/2024 4:01 PM EDT Mejia Anderson MD LAB BLOOD ORDERABLES Final Res ult Performing Organization Address [facility] de Phone Number [facility] [address] [place] [address], [place] [phone] * (ABNORMAL) Comprehensive metabolic panel (09/26/2024 3:37 PM EDT) Pathologist [facility] Sodium 126(L) 133 - 145 mmol/L LAB CHEMISTRY METHOD 09/26/2024 4:41 PM EDT [facility] Potassium 4.4 3.5 - 5.5 mmol/L LAB CHEMISTRY METHOD 09/26/2024 4:41 PM EDT [facility] Chloride 92(L) 96 - 110 mmol/L LAB CHEMISTRY METHOD 09/26/2024 4:41 PM EDT [facility] CO2 27 21 - 32 mmol/L LAB CHEMISTRY METHOD 09/26/2024 4:41 PM [facility] Anion Gap 7 3 - 11 LAB CHEMISTRY METHOD 09/26/2024 4:41 PM [facility] Glucose 87 70 - 100 mg/dL LAB CHEMISTRY METHOD 09/26/2024 4:41 PM [facility] BUN 7 5 - 25 mg/dL LAB CHEMISTRY METHOD 09/26/2024 4:41 PM [facility] Creatinine 0.81 0.70 - 1.30 mg/dL LAB CHEMISTRY METHOD 09/26/2024 4:41 PM [facility] eGFR 101 >=60 mL/min/1. 73m2 LAB CHEMISTRY METHOD 09/26/2024 4:41 PM [facility] Comment:Calculation based on the??Chronic Kidney Disease Epidemiology Collaboration (CKD-EPI) equation refit??without adjustment for race. BUN/Creatinine Ratio 8.6 LAB CHEMISTRY METHOD 09/26/2024 4:41 PM [facility] Calcium 9.5 8.5 - 10.5 mg/dL LAB CHEMISTRY METHOD 09/26/2024 4:41 PM [facility] AST (SGOT) 32 10 - 42 unit/L LAB CHEMISTRY METHOD 09/26/2024 4:41 PM [facility] ALT (SGPT) 47 10 - 60 unit/L LAB CHEMISTRY METHOD 09/26/2024 4:41 PM [facility] Alkaline Phosphatase 82 42 - 121 unit/L LAB CHEMISTRY METHOD 09/26/2024 4:41 PM [facility] Total Protein 7.2 6.0 - 8.0 g/dL LAB CHEMISTRY METHOD 09/26/2024 4:41 PM [facility] Albumin 4.1 3.2 - 5.0 g/dL LAB CHEMISTRY METHOD 09/26/2024 4:41 PM [facility] Total Bilirubin 1.3 0.0 - 1.4 mg/dL LAB CHEMISTRY METHOD 09/26/2024 4:41 PM EDT [facility] Blood Venous blood specimen / Unknown Venipuncture / Unknown 09/26/2024 3:37 PM EDT 09/26/2024 4:01 PM EDT us Mejia Anderson MD LAB BLOOD ORDERABLES Final Res ult [facility] [address] [place] [address], from Last 3 Months Insurance [facility] Care Teams Process Control Specialist Relationship Specialty Start Date End Date Mejia Anderson MD [address] [place] [address] PCP - General Internal Medicine 05/31/24
--- OUTSIDE RECORDS SUMMARY | 2024-10-25 18:41 | XMS_ITS | Encounter Summary ---
Author Organization [facility] Address [address] [place] [address] Care Team Providers Care Brand Development Manager Name Role Phone Mejia Anderson MD Primary Care Provider [phone] Encounter Details Date Type Department Care Team (Late st Contact Info) Description 09/27/2024 Lab Requisition [facility] [address] [place] [phone] Mejia Anderson MD [address] [place] [address] Hypokalemia; Hypo-osmolality and hyponatremia Social History Tobacco [...] LAB CHEMISTRY METHOD 10/04/2024 5:07 PM EDT [facility] Potassium 4.1 3.5 - 5.5 mmol/L LAB CHEMISTRY METHOD 10/04/2024 5:07 PM EDT [facility] Chloride 96 96 - 110 mmol/L LAB CHEMISTRY METHOD 10/04/2024 5:07 PM EDT [facility] CO2 27 21 - 32 mmol/L LAB CHEMISTRY METHOD 10/04/2024 5:07 PM EDT [facility] Anion Gap 7 3 - 11 LAB CHEMISTRY METHOD 10/04/2024 5:07 PM EDT [facility] Blood Venous blood specimen / Unknown Venipuncture / Unknown 10/04/2024 4:00 PM EDT 10/04/2024 4:06 PM EDT us Mejia Anderson MD LAB BLOOD ORDERABLES Final Res ult [facility] [address] [place] [address], documented in this encounter Visit Diagnoses Diagnosis Hypokalemia Hypopotassemia Hypo-osmolality and hyponatremia documented in this encounter Care Teams Brand Development Manager Relationship Specialty Start Date End Date Mejia Anderson MD [address] [place] [address] PCP - General Internal Medicine 05/31/24 documented as of this encounter
--- OUTSIDE RECORDS SUMMARY | 2024-10-25 18:41 | XMS_ITS | Encounter Summary ---
Author Organization [facility] Address [address] [place] [address] Care Team Providers Care Painting Department Supervisor Name Role Phone Mejia Anderson MD Primary Care Provider [phone] Encounter Details Date Type Department Care Team (Latest Contact Info) Description 09/26/2024 Lab Requisition [facility] [address] [place] [phone] Mejia Anderson MD [address] [place] [address] Postprocedural hypothyroidism; Encounter for general adult medical [...] CBC auto differential (09/26/2024 3:37 PM EDT) [facility] WBC 5.6 4.8 - 10.8 K/[facility] LAB HEMETOLOGY METHOD 09/26/2024 4:17 PM EDT [facility] RBC 4.40(L) 4.50 - 5.50 M/mcL LAB HEMETOLOGY METHOD 09/26/2024 4:17 PM EDT [facility] Hemoglobin 14.1 13.5 - 17.5 g/dL LAB HEMETOLOGY METHOD 09/26/2024 4:[address] [facility] Hematocrit 39.4(L) 42.0 - 54.0 % LAB HEMETOLOGY METHOD [facility]24 [facility] MCV 90.2 79.0 - 98.0 FL LAB HEMETOLOGY METHOD 09/26/2024 4:[address] [facility] MCH 32.3(H) 27.0 - 32.0 pcg LAB HEMETOLOGY METHOD 09/26/2024 4:[address] [facility] MCHC 35.8 32.0 - 37.0 g/dL LAB HEMETOLOGY METHOD 09/26/2024 4:[address] [facility] RDW 12.1 11.0 - 15.0 % LAB HEMETOLOGY METHOD 09/26/2024 4:[address] [facility] Platelets 280 130 - 400 K/mcL LAB HEMETOLOGY METHOD 09/26/2024 4:[address] [facility] MPV 10.5 7.0 - 11.0 FL LAB HEMETOLOGY METHOD 09/26/2024 4:[address] [facility] NRBC 0.0 <1.0 % LAB HEMETOLOGY METHOD 09/26/2024 4:[address] [facility] NRBC Absolute 0.00 <0.10 K/mcL LAB HEMETOLOGY METHOD 09/26[facility]2024 [facility] Neutrophils Relative 48.1 % LAB HEMETOLOGY METHOD 09/26/2024 4:[address] [facility] Lymphocytes Relative 31.7 % LAB HEMETOLOGY METHOD 09/26/2024 4:17 PM EDT [facility] Monocytes Relative 16.2 % LAB HEMETOLOGY METHOD 09/26/2024 4:17 PM T [facility] Eosinophils Relative 2.0 % LAB HEMETOLOGY METHOD 09/26[facility]2024 [facility] Basophils Relative 1.3 % LAB HEMETOLOGY METHOD 09/26/2024 4:17 PM EDT [facility] Immature Granulocytes Relative 0.7 % LAB HEMETOLOGY METHOD 09/26/2024 4:17 PM EDT [facility] Neutrophils Absolute 2.68 1.50 - 7.00 K/mcL LAB HEMETOLOGY METHOD 09/26/2024 4:[address] [facility] Lymphocytes Absolute 1.76 1.00 - 5.00 K/mcL LAB HEMETOLOGY METHOD 09/26/2024 4:[facility] Monocytes Absolute 0.90 0.20 - 1.00 K/mcL LAB HEMETOLOGY METHOD 09/26/2024 4[facility] Eosinophils Absolute 0.11 0.00 - 0.50 K/mcL LAB HEMETOLOGY METHOD 09/26/2024 4:[address] [facility] Basophils Absolute 0.07 0.00 - 0.20 K/mcL LAB HEMETOLOGY METHOD 09/26/2024 4:[facility] Immature Granulocytes Absolute 0.04(H) 0.00 - 0.03 K/mcL LAB HEMETOLOGY METHOD 09/26/2024 4:[address] [facility] Blood Venous blood specimen / Unknown Venipuncture / Unknown 09/26/2024 3:37 PM EDT 09/26/2024 4:02 PM EDT Mejia Anderson MD LAB BLOOD ORDERABLES Final Res ult [facility] [address] [place] [address], [place] [phone] * Lipid panel with reflex to direct LDL (09/26/2024 3:37 PM EDT) Cholesterol 159 0 - 200 mg/dL LAB CHEMISTRY METHOD 09/26/2024 4:41 PM EDT [facility] Triglycerides 73 0 - 150 mg/dL LAB CHEMISTRY METHOD 09/26/2024 4:41 PM EDT [facility] HDL 63 >=40 mg/dL LAB CHEMISTRY METHOD 09/26/2024 4:41 PM EDT [facility] LDL Calculated 81 0 - 100 mg/dL LAB CHEMISTRY METHOD 09/26/2024 4:41 PM EDT [facility] VLDL Cholesterol Dilip 14.6 mg/dL LAB CHEMISTRY METHOD 09/26/2024 4:41 PM EDT [facility] Non HDL Chol. (LDL+VLDL) 96 <145 mg/dL LAB CHEMISTRY METHOD 09/26/2024 4:41 PM EDT [facility] Chol/HDL Ratio 2.5 0.0 - 4.4 LAB CHEMISTRY METHOD 09/26/2024 4:41 PM EDT [facility] Blood Venous blood specimen / Unknown Venipuncture / Unknown 09/26/2024 3:37 PM EDT 09/26/2024 4:01 PM EDT Mejia Anderson MD LAB BLOOD ORDERABLES Final Res ult [facility] [address] [place] [address], [place] [phone] * Sedimentation rate (09/26/2024 3:37 PM EDT) Sed Rate 3 0 - 20 mm/hr LAB HEMETOLOGY METHOD 09/26/2024 4:30 PM EDT [facility] Blood Venous blood specimen / Unknown Venipuncture / Unknown 09/26/2024 3:37 PM EDT 09/26/2024 4:02 PM EDT us Mejia Anderson MD LAB BLOOD ORDERABLES Final Res ult [facility] [address] [place] [address], [place] [phone] * (ABNORMAL) Comprehensive metabolic panel (09/26/2024 3:37 PM EDT) Sodium 126(L) 133 - 145 mmol/L LAB CHEMISTRY METHOD 09/26/2024 4:[address] [facility] Potassium 4.4 3.5 - 5.5 mmol/L LAB CHEMISTRY METHOD 09/26/2024 4:[address] [facility] Chloride 92(L) 96 - 110 mmol/L LAB CHEMISTRY METHOD 09/26/2024 4:[address] [facility] CO2 27 21 - 32 mmol/L LAB CHEMISTRY METHOD 09/26/2024 4:[address] [facility] Anion Gap 7 3 - 11 LAB CHEMISTRY METHOD 09/26/2024 4:[address] [facility] Glucose 87 70 - 100 mg/dL LAB CHEMISTRY METHOD 09/26/2024 4:[address] [facility] BUN 7 5 - 25 mg/dL LAB CHEMISTRY METHOD 09/26/2024 4:[address] [facility] Creatinine 0.81 0.70 - 1.30 mg/dL LAB CHEMISTRY METHOD 09/26/2024 4:[address] [facility] eGFR 101 >=60 mL/min/1. 73m2 LAB CHEMISTRY METHOD 09/26/2024 4:41 PM EDT [facility] Comment:Calculation based on the??Chronic Kidney Disease Epidemiology Collaboration (CKD-EPI) equation refit??without adjustment for race. BUN/Creatinine Ratio 8.6 LAB CHEMISTRY METHOD 09/26/2024 4:41 PM T [facility] Calcium 9.5 8.5 - 10.5 mg/dL LAB CHEMISTRY METHOD 09/26/2024 4:[address] [facility] AST (SGOT) 32 10 - 42 unit/L LAB CHEMISTRY METHOD 09/26/2024 4:[address] [facility] ALT (SGPT) 47 10 - 60 unit/L LAB CHEMISTRY METHOD 09/26/2024 4:[address] [facility] Alkaline Phosphatase 82 42 - 121 unit/L LAB CHEMISTRY METHOD 09/26/2024 4:[address] [facility] Total Protein 7.2 6.0 - 8.0 g/dL LAB CHEMISTRY METHOD 09/26/2024 4:[address] [facility] Albumin 4.1 3.2 - 5.0 g/dL LAB CHEMISTRY METHOD 09/26/2024 4:[address] [facility] Total Bilirubin 1.3 0.0 - 1.4 mg/dL LAB CHEMISTRY METHOD 09/26/2024 4:[address] [facility] Blood Venous blood specimen / Unknown Venipuncture / Unknown 09/26/2024 3:37 PM EDT 09/26/2024 4:01 PM EDT us Mejia Anderson MD LAB BLOOD ORDERABLES Final Res ult [facility] [address] [place] [address], * (ABNORMAL) Uric acid (09/26/2024 3:37 PM EDT) Uric Acid 3.5(L) 3.7 - 9.2 mg/dL LAB CHEMISTRY METHOD 09/26/2024 4:41 PM EDT [facility] Blood Venous blood specimen / Unknown Venipuncture / Unknown 09/26/2024 3:37 PM EDT 09/26/2024 4:01 PM EDT us Mejia Anderson MD LAB BLOOD ORDERABLES Final Res ult Performing Organization Address City/[facility]/ZIP Co de Phone Number [facility] [address] [place] [address], [place] [phone] * Thyroid stimulating hormone (09/26/2024 3:37 PM EDT) TSH 2.25 0.40 - 4.00 mcIU/mL LAB CHEMISTRY METHOD 09/26/2024 4:51 PM EDT [facility] Blood Venous blood specimen / Unknown Venipuncture / Unknown 09/26/2024 3:37 PM EDT 09/26/2024 4:01 PM EDT us Mejia Anderson MD LAB BLOOD ORDERABLES Final Res ult Performing Organization Address [facility] de Phone Number [facility] [address] [place] [address], [place] [phone] documented in this encounter Visit Diagnoses Diagnosis Postprocedural hypothyroidism Postsurgical hypothyroidism Encounter for general adult medical examination without abnormal findings Essential (primary) hypertension Unspecified essential hypertension Mild intermittent asthma, uncomplicated Unspecified osteoarthritis, unspecified site documented in this encounter Care Teams Painting Department Supervisor Relationship Specialty Start Date End Date Mejia Anderson MD [address] [place] [address] PCP - General Internal Medicine 05/31/24 documented as of this encounter
== END 2024-10-25 15:46 | disposition home or self-care (01) ==
LOC: HO.HAP 15:45
DX: Z13.89 Encounter for screening for other disorder (principal)

== ENCOUNTER 2024-11-01 15:45 | Outpatient (REF) | payer SELFPAY ==
--- OUTSIDE RECORDS SUMMARY | 2024-11-01 18:47 | XMS_ITS | Encounter Summary ---
Author Organization [facility] Address [address] [place] [address] Care Team Providers Care Motor Mechanic Name Role Phone Mejia Anderson MD Primary Care Provider [phone] Encounter Details Date Type Department Care Team (Latest Contact Info) Description 09/26/2024 Lab Requisition [facility] - Main Lab [address] [place] [phone] Mejia Anderson MD [address] [place] [address] Postprocedural hypothyroidism; Encounter for general adult medical [...] CBC auto differential (09/26/2024 3:37 PM EDT) [facility] WBC 5.6 4.8 - 10.8 K/[facility] LAB HEMETOLOGY METHOD 09/26/2024 4:17 PM EDT [facility] RBC 4.40(L) 4.50 - 5.50 M/mcL LAB HEMETOLOGY METHOD 09/26/2024 4:17 PM EDT [facility] Hemoglobin 14.1 13.5 - 17.5 g/dL LAB HEMETOLOGY METHOD 09/26/2024 4:[address] [facility] Hematocrit 39.4(L) 42.0 - 54.0 % [facility] M[facility] 90.2 79.0 - [...] K/mcL LAB [facility] Neutrophils Relative 48.1 % LAB HEMETOLOGY METHOD 09/26/2024 4:[address] [facility] Lymphocytes Relative 31.7 % LAB HEMETOLOGY METHOD 09/26/2024 4:17 PM EDT [facility] Monocytes Relative 16.2 % LAB HEMETOLOGY METHOD 09/26/2024 4:17 PM T [facility] Eosinophils Relative 2.0 % LAB [facility] Basophils Relative 1.3 % LAB HEMETOLOGY METHOD 09/26/2024 4:17 PM EDT [facility] Immature Granulocytes Relative 0.7 % LAB HEMETOLOGY METHOD 09/26/2024 4:17 PM EDT [facility] Neutrophils Absolute 2.68 1.50 - 7.00 K/mcL LAB HEMETOLOGY METHOD 09/26/2024 4:[address] [facility] Lymphocytes Absolute 1.76 1.00 - 5.00 K/mcL LAB [facility]OLOGY METHOD [facility]24 [facility] Monocytes Absolute 0.90 0.20 - 1.00 K/mcL LAB HEMETOLOGY METHOD 09/26/2024 [facility] Eosinophils Absolute 0.11 0.00 - 0.50 K/mcL LAB HEMETOLOGY METHOD 09/26/2024 4:[address] [facility] Basophils Absolute 0.07 0.00 - 0.20 K/mcL LAB [facility]EMETOLOGY METHOD [facility]24 [facility] Immature Granulocytes Absolute 0.04(H) 0.00 - 0.03 K/mcL LAB HEMETOLOGY METHOD 09/26/2024 4:[address] [facility] Blood Venous blood specimen / Unknown Venipuncture / Unknown 09/26/2024 3:37 PM EDT 09/26/2024 4:02 PM EDT Mejia Anderson MD LAB BLOOD ORDERABLES Final Res ult [facility] [address] [place] [address], [place] [phone] * Lipid panel with reflex to direct LDL (09/26/2024 3:37 PM EDT) Cholesterol 159 0 - 200 mg/dL LAB CHEMISTRY METHOD 09/26/2024 4:41 PM EDT [facility] Triglycerides 73 0 - 150 mg/dL LAB CHEMISTRY METHOD 09/26/2024 4:41 PM EDT [facility] HDL 63 >=40 mg/dL LAB CHEMISTRY METHOD 09/26/2024 4:41 PM EDT [facility] LDL Calculated 81 0 - 100 mg/dL LAB CHEMISTRY METHOD 09/26/2024 4:41 PM EDT [facility] VLDL Cholesterol Dilip 14.6 mg/dL LAB CHEMISTRY METHOD 09/26/2024 4:41 PM EDT [facility] Non HDL Chol. (LDL+VLDL) 96 <145 mg/dL LAB CHEMISTRY METHOD 09/26/2024 4:41 PM EDT [facility] Chol/HDL Ratio 2.5 0.0 - 4.4 LAB CHEMISTRY METHOD 09/26/2024 4:41 PM EDT [facility] Blood Venous blood specimen / Unknown Venipuncture / Unknown 09/26/2024 3:37 PM EDT 09/26/2024 4:01 PM EDT Mejia Anderson MD LAB BLOOD ORDERABLES Final Res ult [facility] [address] [place] [address], [place] [phone] * Sedimentation rate (09/26/2024 3:37 PM EDT) Sed Rate 3 0 - 20 mm/hr LAB HEMETOLOGY METHOD 09/26/2024 4:30 PM EDT [facility] Blood Venous blood specimen / Unknown Venipuncture / Unknown 09/26/2024 3:37 PM EDT 09/26/2024 4:02 PM EDT us Mejia Anderson MD LAB BLOOD ORDERABLES Final Res ult [facility] [address] [place] [address], [place] [phone] * (ABNORMAL) Comprehensive metabolic panel (09/26/2024 3:37 [...] LAB CHEMISTRY METHOD 09/26/2024 4:41 PM EDT [facility] Comment:Calculation based on the??Chronic Kidney Disease Epidemiology Collaboration (CKD-EPI) equation refit??without adjustment for race. BUN/Creatinine Ratio 8.6 LAB CHEMISTRY METHOD 09/26/2024 4:41 PM T [facility] Calcium 9.5 8.5 - 10.5 [...] MD LAB BLOOD ORDERABLES Final Res ult [facility] [address] [place] [address], * (ABNORMAL) Uric acid (09/26/2024 3:37 PM EDT) Uric Acid 3.5(L) 3.7 - 9.2 mg/dL LAB CHEMISTRY METHOD 09/26/2024 4:41 PM EDT [facility] Blood Venous blood specimen / Unknown Venipuncture / Unknown 09/26/2024 3:37 PM EDT 09/26/2024 4:01 PM EDT us Mejia Anderson MD LAB BLOOD ORDERABLES Final Res ult Performing Organization Address City/[facility]/ZIP Co de Phone Number [facility] [address] [place] [address], [place] [phone] * Thyroid stimulating hormone (09/26/2024 3:37 PM EDT) TSH 2.25 0.40 - 4.00 mcIU/mL LAB CHEMISTRY METHOD 09/26/2024 4:51 PM EDT [facility] Blood Venous blood specimen / Unknown Venipuncture / Unknown 09/26/2024 3:37 PM EDT 09/26/2024 4:01 PM EDT us Mejia Anderson MD LAB BLOOD ORDERABLES Final Res ult Performing Organization Address [facility] de Phone Number [facility] [address] [place] [address], [place] [phone] documented in this encounter Visit Diagnoses Diagnosis Postprocedural hypothyroidism Postsurgical hypothyroidism Encounter for general adult medical examination without abnormal findings Essential (primary) hypertension Unspecified essential hypertension Mild intermittent asthma, uncomplicated Unspecified osteoarthritis, unspecified site documented in this encounter Care Teams Motor Mechanic Relationship Specialty Start Date End Date Mejia Anderson MD [address] [place] [address] PCP - General Internal Medicine 05/31/24 documented as of this encounter
--- OUTSIDE RECORDS SUMMARY | 2024-11-01 18:47 | XMS_ITS | Encounter Summary ---
Author Organization [facility] Address [address] [place] [address] Care Team Providers Care Instructor Bridge Name Role Phone Mejia Anderson MD Primary Care Provider [phone] Encounter Details Date Type Department Care Team (Late st Contact Info) Description 09/27/2024 Lab Requisition [facility] - Main Lab [address] [place] [phone] Mejia Anderson MD [address] [place] [address] Hypokalemia; Hypo-osmolality and hyponatremia Social History Tobacco [...] LAB CHEMISTRY METHOD 10/04/2024 5:07 PM EDT [facility] Potassium 4.1 3.5 - 5.5 mmol/L LAB CHEMISTRY METHOD 10/04/2024 5:07 PM EDT [facility] Chloride 96 96 - 110 mmol/L LAB CHEMISTRY METHOD 10/04/2024 5:07 PM EDT [facility] CO2 27 21 - 32 mmol/L LAB CHEMISTRY METHOD 10/04/2024 5:07 PM EDT [facility] Anion Gap 7 3 - 11 LAB CHEMISTRY METHOD 10/04/2024 5:07 PM EDT [facility] Blood Venous blood specimen / Unknown Venipuncture / Unknown 10/04/2024 4:00 PM EDT 10/04/2024 4:06 PM EDT us Mejia Anderson MD LAB BLOOD ORDERABLES Final Res ult [facility] [address] [place] [address], documented in this encounter Visit Diagnoses Diagnosis Hypokalemia Hypopotassemia Hypo-osmolality and hyponatremia documented in this encounter Care Teams Instructor Bridge Relationship Specialty Start Date End Date Mejia Anderson MD [address] [place] [address] PCP - General Internal Medicine 05/31/24 documented as of this encounter
--- OUTSIDE RECORDS SUMMARY | 2024-11-01 18:47 | XMS_ITS | Clinical Summary ---
Author Organization [address] Address [address] [place] [address] Phone Care Team Providers Care Combining Machine Operator Name Role Phone Mejia Anderson MD Primary Care Provider Allergies No known active allergies Medications gabapentin (NEURONTIN) 300 mg capsule Take 1 capsule (300 mg total) by mouth 3 (three) times a day for 5 days. 15 capsule 07/06/2024 Active Active Problems No known active problems Encounters Date Type Department Care Team Description 09/27/2024 Lab Requisition [facility] Lab [address] [place] [address] Mejia Anderson MD Hypokalemia; Hypo-osmolality and hyponatremia 09/26/2024 Lab Requisition [facility] Lab [address] [place] [phone] Mejia Anderson MD Postprocedural hypothyroidism; Encounter for [...] Res ult [facility] [address] [place] [address], * Lipid panel with reflex to direct LDL (09/26/2024 3:37 PM EDT) Cholesterol 159 0 - 200 mg/dL LAB CHEMISTRY METHOD 09/26/2024 4:41 PM [facility] Triglycerides 73 0 - 150 mg/dL LAB CHEMISTRY METHOD 09/26/2024 4:41 PM T [facility] HDL 63 >=40 mg/dL LAB CHEMISTRY METHOD 09/26/2024 4:41 PM [facility] LDL Calculated 81 0 - 100 mg/dL LAB CHEMISTRY METHOD 09/26/2024 4:41 PM EDT [facility] VLDL Cholesterol Dilip 14.6 mg/dL LAB CHEMISTRY METHOD 09/26/2024 4:41 PM EDT [facility] Non HDL Chol. (LDL+VLDL) 96 <145 mg/dL LAB CHEMISTRY METHOD 09/26/2024 4:41 PM [facility] Chol/HDL Ratio 2.5 0.0 - 4.4 LAB CHEMISTRY METHOD 09/26/2024 4:41 PM EDT [facility] Blood Venous blood specimen / Unknown Venipuncture / Unknown 09/26/2024 3:37 PM EDT 09/26/2024 4:01 PM EDT us Mejia Anderson MD LAB BLOOD ORDERABLES Final Res ult [facility] [address] [place] [address], * (ABNORMAL) CBC auto differential (09/26/2024 3:37 [...] % LAB [facility] Platelets 280 130 - 400 K/mcL LAB HEMETOLOGY METHOD 09/26/2024 4:17 PM [facility] MPV 10.5 7.0 - 11.0 FL LAB HEMETOLOGY METHOD 09/26/2024 4:17 PM [facility] NRBC 0.0 <1.0 % LAB HEMETOLOGY METHOD 09/26/2024 4:17 PM [facility] NRBC Absolute 0.00 <0.10 K/mcL LAB HEMETOLOGY METHOD 09/26/2024 4:17 PM [facility] Neutrophils Relative 48.1 % LAB HEMETOLOGY METHOD 09/26/2024 4:17 PM [facility] Lymphocytes Relative 31.7 % LAB HEMETOLOGY METHOD 09/26/2024 4:17 PM [facility] Monocytes Relative 16.2 % LAB HEMETOLOGY METHOD 09/26/2024 4:17 PM [facility] Eosinophils Relative 2.0 % LAB HEMETOLOGY METHOD 09/26/2024 4:17 PM [facility] Basophils Relative 1.3 % LAB HEMETOLOGY METHOD 09/26/2024 4:17 PM [facility] Immature Granulocytes Relative 0.7 % LAB HEMETOLOGY METHOD 09/26/2024 4:17 PM [facility] Neutrophils Absolute 2.68 1.50 - 7.00 K/mcL LAB HEMETOLOGY METHOD [facility] Lymphocytes Absolute 1.76 1.00 - 5.00 K/mcL LAB HEMETOLOGY METHOD 09/26/2024 4:17 PM [facility] Monocytes Absolute 0.90 0.20 - 1.00 K/mcL LAB HEMETOLOGY METHOD 09/26/2024 4:17 PM EDT [facility] Eosinophils Absolute 0.11 0.00 - 0.50 K/[facility] LAB HEMETOLOGY METHOD 09/26/2024 4:17 PM EDT [facility] Basophils Absolute 0.07 0.00 - 0.20 K/[facility] LAB HEMETOLOGY METHOD 09/26/2024 4:17 PM EDT [facility] Immature Granulocytes Absolute 0.04(H) 0.00 - 0.03 K/[facility] LAB HEMETOLOGY METHOD 09/26/2024 4:17 PM EDT [facility] Blood Venous blood specimen / Unknown Venipuncture / Unknown 09/26/2024 3:37 PM EDT 09/26/2024 4:02 PM EDT us Mejia Anderson MD LAB BLOOD ORDERABLES Final Res ult Performing Organization Address City/[facility]/ZIP Co de Phone Number [facility] [address] [place] [address], [place] [phone] * Sedimentation rate (09/26/2024 3:37 PM EDT) Sed Rate 3 0 - 20 mm/hr LAB HEMETOLOGY METHOD 09/26/2024 4:30 PM EDT [facility] Blood Venous blood specimen / Unknown Venipuncture / Unknown 09/26/2024 3:37 PM EDT 09/26/2024 4:02 PM EDT Mejia Anderson MD LAB BLOOD ORDERABLES Final Res ult [facility] [address] [place] [address], [place] [phone] * (ABNORMAL) Uric acid (09/26/2024 3:37 PM EDT) Uric Acid 3.5(L) 3.7 - 9.2 mg/dL LAB CHEMISTRY METHOD 09/26/2024 4:41 PM EDT [facility] Blood Venous blood specimen / Unknown Venipuncture / Unknown 09/26/2024 3:37 PM EDT 09/26/2024 4:01 PM EDT Mejia Anderson MD LAB BLOOD ORDERABLES Final Res ult Performing Organization Address [facility]/ZIP Co de Phone Number [facility] [address] [place] [address], [place] [phone] * Thyroid stimulating hormone (09/26/2024 3:37 PM EDT) [facility] TSH 2.25 0.40 - 4.00 mcIU/mL LAB CHEMISTRY METHOD 09/26/2024 4:51 PM EDT [facility] Blood Venous blood specimen / Unknown Venipuncture / Unknown 09/26/2024 3:37 PM EDT 09/26/2024 4:01 PM EDT Mejia Anderson MD LAB BLOOD ORDERABLES Final Res ult Performing Organization Address [facility] de Phone Number [facility] [address] [place] [address], [place] [phone] * (ABNORMAL) Comprehensive metabolic panel (09/26/2024 3:37 PM EDT) Pathologist [facility] Sodium 126(L) 133 - 145 mmol/L LAB CHEMISTRY METHOD 09/26/2024 4:41 PM EDT [facility] Potassium 4.4 3.5 - 5.5 mmol/L LAB CHEMISTRY METHOD 09/26/2024 4:41 PM EDT [facility] Chloride 92(L) 96 - 110 mmol/L LAB CHEMISTRY METHOD 09/26/2024 4:41 PM EDT [facility] CO2 27 21 - 32 mmol/L LAB CHEMISTRY METHOD 09/26/2024 4:41 PM [facility] Anion Gap 7 3 - 11 LAB CHEMISTRY METHOD 09/26/2024 4:41 PM [facility] Glucose 87 70 - 100 mg/dL LAB CHEMISTRY METHOD 09/26/2024 4:41 PM [facility] BUN 7 5 - 25 mg/dL LAB CHEMISTRY METHOD 09/26/2024 4:41 PM [facility] Creatinine 0.81 0.70 - 1.30 mg/dL LAB CHEMISTRY METHOD 09/26/2024 4:41 PM [facility] eGFR 101 >=60 mL/min/1. 73m2 LAB CHEMISTRY METHOD 09/26/2024 4:41 PM [facility] Comment:Calculation based on the??Chronic Kidney Disease Epidemiology Collaboration (CKD-EPI) equation refit??without adjustment for race. BUN/Creatinine Ratio 8.6 LAB CHEMISTRY METHOD 09/26/2024 4:41 PM [facility] Calcium 9.5 8.5 - 10.5 mg/dL LAB CHEMISTRY METHOD 09/26/2024 4:41 PM [facility] AST (SGOT) 32 10 - 42 unit/L LAB CHEMISTRY METHOD 09/26/2024 4:41 PM [facility] ALT (SGPT) 47 10 - 60 unit/L LAB CHEMISTRY METHOD 09/26/2024 4:41 PM [facility] Alkaline Phosphatase 82 42 - 121 unit/L LAB CHEMISTRY METHOD 09/26/2024 4:41 PM [facility] Total Protein 7.2 6.0 - 8.0 g/dL LAB CHEMISTRY METHOD 09/26/2024 4:41 PM [facility] Albumin 4.1 3.2 - 5.0 g/dL LAB CHEMISTRY METHOD 09/26/2024 4:41 PM [facility] Total Bilirubin 1.3 0.0 - 1.4 mg/dL LAB CHEMISTRY METHOD 09/26/2024 4:41 PM EDT [facility] Blood Venous blood specimen / Unknown Venipuncture / Unknown 09/26/2024 3:37 PM EDT 09/26/2024 4:01 PM EDT us Mejia Anderson MD LAB BLOOD ORDERABLES Final Res ult [facility] [address] [place] [address], from Last 3 Months Insurance [facility] Care Teams Combining Machine Operator Relationship Specialty Start Date End Date Mejia Anderson MD [address] [place] [address] PCP - General Internal Medicine 05/31/24
== END 2024-11-01 15:46 | disposition home or self-care (01) ==
LOC: HO.HAP 15:45
PROVIDERS: PCP Internal Medicine; Visit Provider Internal Medicine
DX: Z46.1 Encounter for fitting and adjustment of hearing aid (principal); H90.3 Sensorineural hearing loss, bilateral
CPT/HCPCS: V5299